=== PATIENT | male | born 1970 ===

== ENCOUNTER 2017-08-06 14:01 | Emergency (ER) | payer BC ==
[2017-08-06] MEDS ORDERED: Ibuprofen TAB* 600 MG ONE (14:16)
[2017-08-06] MEDS ORDERED: Ibuprofen TAB* 600 MG PO ONE (14:18)
--- NOTE | 2017-08-06 16:28 | UC ---
FLU HPI - HPI Summary HPI Summary: day 2 of fever, body aches and cough, unsure if he has had any illness exposures -has been taking otc medications with out much symptom relief - History of Current Complaint Chief Complaint: UCGeneralIllness Stated Complaint: FEVER Time Seen by Provider: 08/06/17 16:19 Hx Obtained From: Patient Onset/Duration: Sudden Onset, Lasting Days - 2 Severity Currently: Moderate Severity Initially: Severe Pain Intensity: 10 Associated Signs & Symptoms: Positive: Fever, Myalgia, Cough, Nasal Congestion, Headache - Allergy/Home Medications Allergies/Adverse Reactions: Allergies Allergy/AdvReac Type Severity Reaction Status Date / Time No Known Allergies Allergy Verified 08/06/17 14:13 PMH/Surg Hx/FS Hx/Imm Hx Previously Healthy: Yes Other History Of: Negative For: HIV, Hepatitis B, Hepatitis C - Surgical History Surgical History: None - Family History Known Family History: Negative: Renal Disease, Blood Disorder - Social History Occupation: Employed Full-time - stud beef cattle farmer Lives: With Family - no children Alcohol Use: None Substance Use Type: None Smoking Status (MU): Never Smoked Tobacco Review of Systems Constitutional: Fever, Chills, Fatigue Skin: Negative Eyes: Negative ENT: Nasal Discharge Respiratory: Cough Cardiovascular: Negative Gastrointestinal: Negative Genitourinary: Negative Motor: Negative Neurovascular: Negative Musculoskeletal: Arthralgia, Myalgia Neurological: Headache Psychological: Negative Is Patient Immunocompromised?: No All Other Systems Reviewed And Are Negative: Yes Physical Exam Triage Information Reviewed: Yes Appearance: Well-Nourished, Ill-Appearing - mild, Pain Distress - mild Vital Signs: Initial Vital Signs Temp 102.6 F 08/06/17 14:19 Pulse 89 08/06/17 14:19 Resp 20 08/06/17 14:19 BP 109/66 08/06/17 14:19 Pulse Ox 99 08/06/17 14:19 Vital Signs Reviewed: Yes Eye Exam: Normal Eyes: Positive: Conjunctiva Clear ENT Exam: Normal ENT: Positive: Normal ENT inspection, Hearing grossly normal, Pharynx normal, Nasal congestion, Nasal drainage, TMs normal, Uvula midline. Negative: Tonsillar swelling, Tonsillar exudate, Trismus, Muffled voice, Hoarse voice, Dental tenderness, Sinus tenderness Dental Exam: Normal Neck exam: Normal Neck: Positive: Supple, Nontender, No Lymphadenopathy Respiratory Exam: Normal Respiratory: Positive: Chest non-tender, Lungs clear, Normal breath sounds, No respiratory distress, No accessory muscle use Cardiovascular Exam: Normal Cardiovascular: Positive: RRR, No Murmur, Pulses Normal, Brisk Capillary Refill Musculoskeletal Exam: Normal Musculoskeletal: Positive: Strength Intact, No Edema Neurological Exam: Normal Neurological: Positive: Alert, Muscle Tone Normal Psychological Exam: Normal Skin Exam: Normal Diagnostics - Laboratory Diagnostic Studies Completed/Ordered: influenza B (+) Flu Course/Dx - Course Course Of Treatment: Rest increase fluids, tylenol, ibuprofen, Tamiflu, otc medications for symptom relief follow with pcp - Differential Dx/Diagnosis Provider Diagnoses: Influenza B Discharge - Discharge Plan Condition: Stable Disposition: HOME Prescriptions: Oseltamivir CAP* [Tamiflu CAP*] 75 mg PO BID #10 cap Patient Education Materials: Ibuprofen (By mouth), Influenza (ED) Print Language: GUAMANIAN Forms: *Gen. Provider Communication, *Work Release Referrals: [facility] [place] [facility] [Outside] - If Needed
== END 2017-08-06 16:48 | disposition home or self-care (01) ==
LOC: UCEAST 14:01
DX: J10.1 Influenza due to other identified influenza virus with other respiratory manifestations (principal)
CPT/HCPCS: 87502; 99212; A9270-GY; G0463